=== PATIENT | female | born 1985 | race Caucasian/White ===

== ENCOUNTER 2017-09-04 17:59 | Emergency (ER) | payer MEDICARE, MEDICAID | END 2017-09-04 20:14 | disposition home or self-care (01) | LOC: D.ER 17:59 | DX: K02.9 Dental caries, unspecified (principal); K04.7 Periapical abscess without sinus; F17.200 Nicotine dependence, unspecified, uncomplicated ==

== ENCOUNTER 2017-10-06 15:23 | Emergency (ER) | payer MEDICARE, MEDICAID | END 2017-10-06 16:56 | disposition home or self-care (01) | LOC: D.ER 15:23 | DX: S90.122A Contusion of left lesser toe(s) without damage to nail, initial encounter (principal); W50.0XXA Accidental hit or strike by another person, initial encounter; Y93.89 Activity, other specified; Y92.029 Unspecified place in mobile home as the place of occurrence of the external cause ==

== ENCOUNTER 2017-11-07 10:20 | Emergency (ER) | payer MEDICARE, MEDICAID ==
[2017-11-07 10:56] LABS: BASOPHILS 0.2 % (0-2); EOSINOPHILS 3.2 % (0-7); HEMOGLOBIN 14.3 g/dL (12-16); IMMATURE GRANULOCYTES 0.2 % (0-5); LYMPHOCYTES 31.2 % (15-50); MCH 26.6 pg (26.0-34.0); MCHC 33.3 g/dL (31.0-37.0); MCV 79.9 fL (80.0-100.0); MEAN PLATELET VOLUME 10.8 fL (7.4-10.4); MONOCYTES 10.5 % (2-11); NEUTROPHILS 54.7 % (40-80); PLATELET COUNT 169 10x3/uL (130-400); RBC 5.38 10x6/uL (4.00-5.40); RDW 13.6 % (11.5-14.5); WBC 6.2 10x3/uL (4.8-10.8)
[2017-11-07 11:22] LABS: HCG SERUM NEGATIVE (NEGATIVE)
[2017-11-07 12:37] LABS: APPEARANCE CLOUDY (CLEAR); BACTERIA MODERATE /hpf (NONE SEEN); BILIRUBIN NEGATIVE (NEGATIVE); COLOR PINK (YELLOW); EPITHELIAL CELLS 0-5 /hpf (0-5); GLUCOSE NEGATIVE (NEGATIVE); KETONE NEGATIVE (NEGATIVE); MUCUS <1+ /lpf (NONE SEEN); NITRITE NEGATIVE (NEGATIVE); PROTEIN TRACE mg/dL (NEGATIVE); RED CELLS - URINE >50 /hpf (0-5); SPECIFIC GRAVITY 1.005 (1.005-1.020); UROBILINOGEN NORMAL (NORMAL); WHITE CELLS - URINE 0-5 /hpf (0-5)
== END 2017-11-07 12:26 | disposition home or self-care (01) ==
LOC: D.ER 10:20
PROVIDERS: Emergency Medicine; Family Medicine
DX: N94.6 Dysmenorrhea, unspecified (principal); F17.200 Nicotine dependence, unspecified, uncomplicated

== ENCOUNTER 2018-04-30 12:58 | Emergency (ER) | payer MEDICARE, MEDICAID ==
[~2018-04-30] VITALS: Ht 157.5 cm; Wt 83.6 kg
[2018-04-30 13:23] VITALS: Ht 157.5 cm; Wt 83.6 kg
[2018-04-30] MEDS ORDERED: NORCO 7.5/325 T1 TA1 PO (15:13)
[2018-04-30 15:26] VITALS: BP 118/70
== END 2018-04-30 15:24 | disposition home or self-care (01) ==
LOC: D.ER 12:58
DX: S81.812A Laceration without foreign body, left lower leg, initial encounter (principal); W26.8XXA Contact with other sharp object(s), not elsewhere classified, initial encounter; Y93.89 Activity, other specified; Y92.019 Unspecified place in single-family (private) house as the place of occurrence of the external cause; J45.909 Unspecified asthma, uncomplicated; F17.200 Nicotine dependence, unspecified, uncomplicated

== ENCOUNTER 2018-05-07 16:12 | Emergency (ER) | payer MEDICARE, MEDICAID ==
[~2018-05-07] VITALS: Ht 157.5 cm; Wt 81.8 kg
[~2018-05-07 16:12] MED LIST: NORCO 7.5/325 T1 TA1 PO
[2018-05-07 16:23] VITALS: Ht 157.5 cm; Wt 81.8 kg
[2018-05-07] MEDS ORDERED: VIBRAMYCIN 100100 MG PO (17:09)
[2018-05-07] MEDS ORDERED: TYLENOL W/CODEI1 TAB PO (17:09)
[2018-05-07 17:56] VITALS: BP 99/74
== END 2018-05-07 17:58 | disposition home or self-care (01) ==
LOC: D.ER 16:12
DX: L03.116 Cellulitis of left lower limb (principal); F17.200 Nicotine dependence, unspecified, uncomplicated

== ENCOUNTER 2018-07-12 16:31 | Emergency (ER) | payer MEDICARE, MEDICAID ==
[~2018-07-12] VITALS: Ht 157.5 cm; Wt 86.4 kg
[~2018-07-12 16:31] MED LIST changes: +TYLENOL W/CODEI1 TAB PO; +VIBRAMYCIN 100100 MG PO
[2018-07-12 17:01] VITALS: Ht 157.5 cm; Wt 86.4 kg
[2018-07-12] MEDS ORDERED: FLOXIN 0.3 % OTI5 ML LEFT EAR (17:37)
[2018-07-12] MEDS ORDERED: AUGMENTIN 875-11 TAB PO (17:37)
[2018-07-12] MEDS ORDERED: NORCO 7.5/325 T1 TA1 PO (17:38)
[2018-07-12 18:52] VITALS: BP 117/79
== END 2018-07-12 18:54 | disposition home or self-care (01) ==
LOC: D.ER 16:31
DX: H60.92 Unspecified otitis externa, left ear (principal); H66.92 Otitis media, unspecified, left ear

== ENCOUNTER 2018-07-30 18:31 | Emergency (ER) | payer MEDICARE, MEDICAID ==
[~2018-07-30] VITALS: Ht 157.5 cm; Wt 91.8 kg
[~2018-07-30 18:31] MED LIST changes: +AUGMENTIN 875-11 TAB PO; +FLOXIN 0.3 % OTI5 ML LEFT EAR
[2018-07-30 19:00] VITALS: Ht 157.5 cm; Wt 91.8 kg
[2018-07-30] MEDS ORDERED: CIPRO500 MG PO (22:05)
[2018-07-30] MEDS ORDERED: MEDROL DOSE PACK4 MG PO (22:05)
[2018-07-30] MEDS ORDERED: TYLENOL W/CODEI1 TAB PO (22:07)
[2018-07-30 22:14] VITALS: BP 105/60
== END 2018-07-30 22:15 | disposition home or self-care (01) ==
LOC: D.ER 18:31
DX: J40 Bronchitis, not specified as acute or chronic (principal); R09.89 Other specified symptoms and signs involving the circulatory and respiratory systems; R06.02 Shortness of breath; R10.9 Unspecified abdominal pain

== ENCOUNTER 2019-02-23 16:57 | Emergency (ER) | payer MEDICARE, MEDICAID ==
[~2019-02-23] VITALS: Ht 157.5 cm; Wt 95.9 kg
[~2019-02-23 16:57] MED LIST changes: +CIPRO500 MG PO; +MEDROL DOSE PACK4 MG PO
[2019-02-23 17:03] VITALS: BP 106/58; Ht 157.5 cm; Wt 95.9 kg
[2019-02-23] MEDS ORDERED: IBUPROFEN800 MG PO ×2 (18:37→18:38)
[2019-02-23] MEDS ORDERED: TYLENOL W/CODEI1 TAB PO (18:37)
== END 2019-02-23 18:55 | disposition home or self-care (01) ==
LOC: D.ER 16:57
DX: S92.352A Displaced fracture of fifth metatarsal bone, left foot, initial encounter for closed fracture (principal); X50.1XXA Overexertion from prolonged static or awkward postures, initial encounter; Y93.89 Activity, other specified; Y92.89 Other specified places as the place of occurrence of the external cause

== ENCOUNTER 2019-02-28 13:10 | Emergency (ER) | payer MEDICARE, MEDICAID ==
[~2019-02-28 13:10] MED LIST changes: +IBUPROFEN800 MG PO
[2019-02-28] MEDS ORDERED: AUGMENTIN 875-11 TAB PO (14:18)
[2019-02-28] MEDS ORDERED: HYDROCODON-ACE1 EA10 PO (14:18)
== END 2019-02-28 14:40 | disposition home or self-care (01) ==
LOC: D.ER 13:10
DX: S92.352G Displaced fracture of fifth metatarsal bone, left foot, subsequent encounter for fracture with delayed healing (principal); X58.XXXD Exposure to other specified factors, subsequent encounter; H66.002 Acute suppurative otitis media without spontaneous rupture of ear drum, left ear; H92.02 Otalgia, left ear

== ENCOUNTER 2019-09-22 12:06 | Emergency (ER) | payer MEDICAID ==
[~2019-09-22] VITALS: Ht 157.5 cm; Wt 100.5 kg
[~2019-09-22 12:06] MED LIST changes: +HYDROCODON-ACE1 EA10 PO
[2019-09-22 12:10] VITALS: Ht 157.5 cm; Wt 100.5 kg
[2019-09-22] MEDS ORDERED: VOLTAREN75 MG PO (13:40)
[2019-09-22] MEDS ORDERED: MUPIROCIN22 GM TOPICAL (13:40)
[2019-09-22 14:14] VITALS: BP 130/76
== END 2019-09-22 14:21 | disposition home or self-care (01) ==
LOC: D.ER 12:06
DX: S81.012A Laceration without foreign body, left knee, initial encounter (principal); W19.XXXA Unspecified fall, initial encounter